=== PATIENT | male | born 1980 | race Two or more races ===

== ENCOUNTER 2023-11-29 22:11 | Emergency (ER) | payer OTHER ==
[~2023-11-29] VITALS: Ht 330.2 cm; Wt 131.5 kg
[~2023-11-29 22:11] MED LIST: LISINOPRIL5 MG
[2023-11-29] MEDS ORDERED: AMLODIPINE-OLM1 EAC1 PO (22:28)
[2023-11-29] MEDS ORDERED: VALSARTAN320 MG PO (22:29)
[2023-11-29] MEDS ORDERED: CARVEDILOL ER40 MG PO (22:29)
[2023-11-29] MEDS ORDERED: HYDRALAZINE HCL25 MG PO (22:29)
[2023-11-29] MEDS ORDERED: KETOROLAC TROMETHAMINE 30 MG VIAL IV ONE (23:45)
[2023-11-29] MEDS ORDERED: TAMSULOSIN HCL 0.4 MG CAP PO ONE (23:45)
[2023-11-30] MEDS ORDERED: KETOROLAC TROMETHAMINE 30 MG VIAL ONE (00:24)
[2023-11-30] MEDS ORDERED: TAMSULOSIN HCL 0.4 MG CAP PO ONE (00:24)
[2023-11-30 00:49] LABS: HEMATOCRIT 43.1 % (39.0-48.0); HEMOGLOBIN 14.8 g/dL (13-16.00); MEAN CORPUSCULAR HEMOGLOBIN 29.2 pg (27.00-32.0); MEAN CORPUSCULAR HGB CONC 34.3 g/dl (32.0-36.0); PLATELET COUNT 234 K/uL (150-450); RED BLOOD COUNT 5.06 M/uL (4.00-6.00); RED CELL DISTRIBUTION WIDTH 14.5 % (11.5-14.5)
[2023-11-30 01:08] LABS: URINE APPEARANCE Clear; URINE BILIRRUBIN Negative (NEGATIVE); URINE BLOOD Negative; URINE COLOR Yellow; URINE GLUCOSE Negative (NEGATIVE); URINE KETONE Negative (NEGATIVE); URINE LEUKOCYTE Negative; URINE NITRATE Negative; URINE PROTEIN Negative (NEGATIVE); URINE UROBILINOGEN 0.2 E.U./dl
[2023-11-30 01:10] LABS: URINE EPITHELIAL CELLS 1.6 uL (0.0-38.8); URINE RBC 5.6 uL (0.0-20.8); URINE WBC 1.8 uL (0.0-23.2)
[2023-11-30 01:13] LABS: CALCIUM 9.3 mg/dL (8.5-10.1); CREATININE SERUM 1.06 mg/dL (0.70-1.30); GFR 75.55; POTASSIUM 3.77 mEq/L (3.5-5.1)
[2023-11-30 01:14] LABS: URINE CAST 0.15 uL (0.0-1.40)
== END 2023-11-30 02:23 | disposition home or self-care (01) ==
LOC: ER 22:12
PROVIDERS: Emergency Medicine
DX: N23 Unspecified renal colic (principal)